=== PATIENT | male | born 1945 | race Caucasian/White ===

== ENCOUNTER 2017-01-15 15:49 | Emergency (ER) | payer MEDICARE ==
[~2017-01-15 15:49] MED LIST: AUGMENTIN 875-1 EACH PO; BUSPAR 5MG TABLE5 MG PO; LOPRESSOR 25 MG25 MG PO; MEDROL DOSEPAK 24 MG PO; SINEQUAN CAP 5050 MG PO; ZESTRIL20 MG PO; ZOLOFT50 MG PO
[2017-01-15 16:31] LABS: HEMOGLOBIN 11.7 gm/dl (14.0-17.5); RED BLOOD COUNT 4.01 M/UL (4.20-5.50); WHITE BLOOD COUNT 13.7 K/UL (4.5-11.0)
[2017-01-15 16:52] LABS: BUN/CREATININE RATIO 9 (0-10)
== END 2017-01-15 21:12 | disposition home or self-care (01) ==
LOC: ER1 15:49
PROVIDERS: Emergency Medicine
DX: J44.1 Chronic obstructive pulmonary disease with (acute) exacerbation (principal); J20.9 Acute bronchitis, unspecified; J44.0 Chronic obstructive pulmonary disease with (acute) lower respiratory infection; I10 Essential (primary) hypertension; Z87.442 Personal history of urinary calculi
CPT/HCPCS: 36415; 36600; 71010; 80053; 82550; 82553; 82803; 83605; 83874; 83880; 84484; 85025; 87040; 93005; 94640; 94664; 96374; 96375; 99285; J0456; J0696; J2270; J2930; J7030; J7050; Q9963

== ENCOUNTER 2017-01-29 21:07 | Emergency (ER) | payer MEDICARE ==
[2017-01-29 23:10] LABS: HEMOGLOBIN 14.4 gm/dl (14.0-17.5); RED BLOOD COUNT 4.89 M/UL (4.20-5.50); WHITE BLOOD COUNT 11.1 K/UL (4.5-11.0)
[2017-01-29 23:15] LABS: BUN/CREATININE RATIO 18 (0-10)
== END 2017-01-30 01:55 | disposition home or self-care (01) ==
LOC: ER1 21:07
PROVIDERS: Physician Assistant
DX: N13.2 Hydronephrosis with renal and ureteral calculous obstruction (principal); I10 Essential (primary) hypertension; E78.5 Hyperlipidemia, unspecified; J44.9 Chronic obstructive pulmonary disease, unspecified; Z87.891 Personal history of nicotine dependence; Z79.52 Long term (current) use of systemic steroids; Z79.899 Other long term (current) drug therapy
CPT/HCPCS: 36415; 80053; 81001; 83690; 85025; 96374; 96375; 99284; J1885; J2270